=== PATIENT | female | born 1960 | race Caucasian/White ===

== ENCOUNTER 2016-11-15 02:38 | Inpatient (IN) | payer OTHER ==
[~2016-11-15] VITALS: Ht 157.5 cm; Wt 61.7 kg
[~2016-11-15 02:38] MED LIST: AMLODIPINE BESY10 M1 PO; OXYCODONE HCL30 M1 PO; OXYCONTIN60 M1 PO; SOMA350 M1 PO; TRINTELLIX5 MG PO
--- NOTE | 2016-11-15 10:15 | Admission Core Measures ---
Admission Meds I reviewed the following Meds: Current Medications Sig/Reema Start time Last Medication Dose Stop Time Status Admin Acetaminophen 975 MG ONCE 11/15 NR (Tylenol) 11/15 2358 Cefazolin Sodium 2,000 MG ONCE 11/15 NR (Kefzol-Ancef Inj) 11/15 2358 Oxycodone HCl 10 MG ONCE 11/15 NR (Roxicodone) 11/15 2358 Vancomycin HCl 1,000 MG ONCE 11/15 NR Dextrose/Water 250 ML 11/15 2358 (D5W) Acute Coronary Syndrome Inclusion Criteria ACS Diagnosis No Inpatient Core Measures LDL Reminder: If No, please order W/I first 24hr of stay Congestive Heart Failure Inclusion Criteria CHF Diagnosis No Cerebrovascular accident Inclusion Criteria CVA/TIA Diagnosis No Inpatient Core Measures Bedside Swallow Eval Reminder: If BSE failed, place ST order Antithrombotic Reminder: Order Antithrombotic Medication by end of day 2 Antithrombotic Reminder: Document Reason Antithrombotic Not ordered by end of day 2 AFIB/Flutter Reminder: If Present, add to problem list AFIB/Flutter Reminder: Order Anticoag Medication for pts with AFIB/Flutter Atherosclerosis Reminder: If Present, add to problem list LDL Reminder: If No, please order W/I first 24hr of stay PT Order Reminder: If No, please order Venous thromboembolism Inpatient Core Measures VTE Risk Factors: Age > 40, Surgery VTE Prophylaxis Ordered Inpt Mech & Pharm No Mech VTE prophylaxis d/t No contraindications No VTE Pharm Prophylaxis d/t No contraindications Inclusion Criteria - Per Current guidelines, there needs to be overlap - treatment for the first 5 days of Warfarin therapy. - Parenteral Anticoagulation (IV or SC) needs to be - given along with Warfarin therapy. VTE Diagnosis No VTE Type NONE VTE Confirmed by (Test) NONE Problem List As ranked by this Provider includes Assessment & Plan 1. Status post revision of total replacement of right knee HOME MEDS Home Med List Amlodipine Besylate 10 MG TABLET 1 TAB PO QPM HEART (Reported) Carisoprodol (SOMA) (Unknown Strength) TABLET (Unknown Dose) PO TIDPRN PRN SPASMS (Reported) Oxycodone HCl 30 MG TABLET 1 TAB PO Q4P PRN PAIN (Reported) Oxycodone HCl (Oxycontin) 60 MG TAB.ER.12H 1 TAB PO BID PAIN (Reported) Vortioxetine Hydrobromide (Trintellix) 5 MG TABLET 2 TAB PO QPM DEPRESSION ( Reported)
--- NOTE | 2016-11-15 13:44 | Operative Report ---
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 After induction of spinal anesthesia and administration of appropriate preoperative antibiotics she was positioned supine on the OR table and all bony prominences as well padded. A well-padded pneumatic tourniquet was placed on the right upper thigh. The right lower extremity was then prepped and draped in the usual sterile fashion. After exsanguination with Esmarch the tourniquet was inflated to 250 mmHg. Utilizing the previous incision a standard medial parapatellar approach was made to the right knee. This was carried down through skin and subcutaneous tissue to the level of the fascia. Meticulous hemostasis was maintained with Bovie cautery. The extensor mechanism and patellar retinaculum were opened sharply. There is quite a bit of synovitis and this was excised with the use of the Bovie. The medial and lateral gutters were re-created in the medial release was performed. The polyethylene component was then removed without difficulty. Attention was then turned to the femoral component. The bone cement interface was identified. Micromotion was noted between the femoral component and the bone itself. Utilizing a sagittal saw and osteotomes the femoral component was removed with minimal underlying bony damage. All retained loose cement was removed. The femoral canal was then re-created. A posterior synovectomy was then done. Attention was then turned to the tibial component. After exposure was completed it was noted to be grossly loose. It was removed without difficulty. The retained cement however was quite well fixed. Utilizing a high-speed bur and osteotomes the retained cement was carefully removed and the tibial canal was re -created. Both the femoral and tibial canals were then sequentially reamed. The tibial canal was reamed up to a size 12 mm and the femoral canal was reamed up to 13 mm. Beginning with the tibia the proximal tibial cut was refreshed perpendicular to the long axis of the tibial shaft utilizing the reamer as a guide. The tibia was then trialed with a size 3 [place] tibial baseplate and 12 mm x 100 mm fluted stem. Attention was then turned to the femoral component. The box was widened with the use of a sagittal saw and the chamfer cuts were made freehand. The femoral component was then trialed with a size 3 total stabilized femoral component and a 13 mm x 100 mm stem and a pair of posterior augments. The posterior lateral augment was 10 mm in the posterior medial augment was 5 mm. This yielded excellent fit and stability. The knee was then trialed with a size 3 x 16 total stabilized tibial insert. This yielded excellent range of motion and patellar tracking. All trial components removed and the knee was copious irrigated. All components were of the [place] triathlon total knee revision system. All components were cemented into place using [place] Simplex cement with tobramycin. The knee was again irrigated after cementation. The extensor mechanism and patellar retinaculum were repaired using interrupted #1 Vicryl sutures. Hemovac drain was left in the intra-articular space. The skin was approximated with interrupted 2-0 Vicryl and closed with liliana. A sterile dressing was applied the tourniquet was deflated patient was awakened and taken to recovery room in sensory condition.
[2016-11-15] MEDS ORDERED: ASPIRIN EC325 M2 PO (14:34)
[2016-11-15] MEDS ORDERED: COLACE100 M1 PO (14:35)
[2016-11-15] MEDS ORDERED: MIRALAX17 G1 PO (14:39)
--- NOTE | 2016-11-15 14:43 | Patient Discharge Instructions ---
Discharge Instructions General Discharge Information You were seen/treated for: Right knee painful total knee replacement You had these procedures: Revision right total knee replacement Watch for these problems: Increasing pain, redness, warmth, swelling. Drainage of any type from incision. Inability to bear weight on right leg. Fever greater than 101.5. Do not soak the wound: Yes No bath, but you may shower: Yes Special Instructions: Incision: Dry dressing. May shower. No baths. No ointments of any kind. Ice as needed. Bowel regimen: Colace and or MiraLAX Weight-bearing as tolerated Follow-up with Dr. Stephenson in 6 weeks. Call office for fevers greater than 101.5, excessive drainage or inability to bear weight on operative extremity. Visiting nurse will change dressing. Diet Continue normal diet: Yes Recommended Diet: Regular Activity Full Activity/No Limits: No Activity Self Limited: Yes Pounds, do NOT lift more than: 10 Additional ACTIVITY Info: Weight-bear as tolerated Acute Coronary Syndrome Inclusion Criteria At DC or during hospital stay patient has or had the following: ACS DIAGNOSIS No Discharge Core Measures Meds if any: Prescribed or Continued at Discharge Meds if any: NOT Prescribed or Continued at Discharge Congestive Heart Failure Inclusion Criteria At DC or during hospital stay patient has or had the following: CHF DIAGNOSIS No Discharge Core Measures Meds if any: Prescribed or Continued at Discharge Meds if any: NOT Prescribed or Continued at Discharge Cerebrovascular accident Inclusion Criteria At DC or during hospital stay patient has or had the following: CVA/TIA Diagnosis No Discharge Core Measures Meds if any: Prescribed or Continued at Discharge Meds if any: NOT Prescribed or Continued at Discharge Venous thromboembolism Inclusion Criteria VTE Diagnosis No VTE Type NONE VTE Confirmed by (Test) NONE Discharge Core Measures - Per Current guidelines, there needs to be overlap - treatment for the first 5 days of Warfarin therapy. - If discharged on Warfarin prior to 5 days of - overlap therapy, the patient will need to be - assessed for post discharge needs including - *Post discharge parental anticoagulation - *Warfarin and/or parental anticoagulation education - *Follow up date to check INR post discharge At least 5 days overlap therapy as Inpatient No Meds if any: Prescribed or Continued at Discharge Note: Overlap Therapy is Warfarin and Anticoagulant Meds if any: NOT Prescribed or Continued at Discharge
--- NOTE | 2016-11-15 14:46 | Surgical Discharge Summary ---
Visit Information Visit Dates Admission Date: 11/15/16 Discharge Date: 11/17/2016 History of Present Illness Chief Complaint: Right knee painful total knee replacement Medical History Isolation History: Standard Surgical History Pertinent Surgical History: knee replacement Review of Systems: See H&P Hospital Course Course Attending Physician: RPAMOD VINCENT MD Primary Care Physician: ALEX TORRES,McKitrick Hospital Course: Patient was admitted to the hospital on 11/15/2016 for a revision right total knee arthroplasty. She tolerated the procedure well. She was transferred to a general surgical floor. Her diet was advanced and tolerated. She voided spontaneously. Her vital signs were stable and within normal limits. Her pain was well controlled. She was evaluated and treated by physical therapy. She was deemed appropriate for discharge. Allergies: Coded Allergies: Sulfa (Sulfonamide Antibiotics) (Intermediate, RASH 11/15/16) Uncoded Allergies: BETA LACTAM (UNKNOWN 11/15/16) PER PRE-OP SHEET FROM 11/15/16. -CG 11/15/16 8391 Disposition Summary Disposition Principal Diagnosis: Painful right total knee replacement Additional Diagnosis: None Discharge Disposition: home health services Discharge Instructions General Discharge Information Code Status: Full Code Patient's Diet: Regular, advance as tolerated Patient's Activity: Weight-bear as tolerated on right lower extremity Follow-Up Instructions/Appts: Incision: Dry dressing. May shower. No baths. No ointments of any kind. Ice as needed. Bowel regimen: Colace and or MiraLAX Weight-bearing as tolerated Follow-up with Dr. Vincent in 6 weeks. Call office for fevers greater than 101.5, excessive drainage or inability to bear weight on operative extremity. Visiting nurse will change dressing. Medications at Discharge Discharge Medications: Continue taking these medications: Oxycodone HCl (Oxycodone HCl) 30 MG TABLET 1 Tablet ORAL EVERY 4 HOURS NEEDED as needed for PAIN Oxycodone HCl (Oxycontin) 60 MG TAB.ER.12H 1 Tablet ORAL TWICE DAILY Amlodipine Besylate (Amlodipine Besylate) 10 MG TABLET 1 Tablet ORAL Every night Vortioxetine Hydrobromide (Trintellix) 5 MG TABLET 2 Tablet ORAL Every night Carisoprodol (SOMA) (Unknown Strength) TABLET Unknown Dose ORAL THREE TIMES A DAY NEEDED as needed for SPASMS Start taking the following new medications: Aspirin (Ecotrin*) 325 MG TABLET. 1 Tablet ORAL TWICE DAILY Qty = 60 No Refills Docusate Sodium (Colace) 100 MG CAPSULE 1 Capsule ORAL TWICE DAILY Qty = 14 No Refills Polyethylene Glycol 3350 (Miralax) 17 GRAM POWD.PACK 1 Packet ORAL DAILY Qty = 7 No Refills Instructions: dissolve in water, discontinue use if you develop loose stool or diarrhea Copies To: PRAMOD VINCENT MD
[2016-11-15 17:20] VITALS: BP 132/70
[2016-11-15 19:30] VITALS: BP 122/78
[2016-11-15 21:30] VITALS: BP 118/80
--- NOTE | 2016-11-15 22:23 | PN- Orthopedic ---
Subjective Subjective: poc s/p right tka revision no major complaints denies cp, sob, no n+v with diet Objective Vital Signs and I&Os Vital Signs Date Time Temp Pulse Resp B/P Pulse O2 O2 Flow FiO2 Ox Delivery Rate 11/15 2200 68 118/80 11/15 2130 97.9 68 19 118/80 94 Nasal 2.0L Cannula 11/15 1930 98.8 63 18 122/78 91 Room Air 11/15 1720 98.2 78 20 132/70 92 Room Air Physical Exam: cv: rrr lungs: clear abd: soft, +bs ext: distal cms intact drsg dry onq in place hem;ovac: with snaguinous drainage Assessment/Plan Assessment/Plan stable plan oob with pt in am home d/c planning Core Measures/Miscellaneous Venous Thromboembolism VTE Risk Factors: Age > 40, Surgery VTE Contraindications: No Contraindications VTE Prophylaxis Ordered Inpt: Mech & Pharm VTE Diagnosis: No VTE Type: NONE VTE Confirmed by (Test): NONE Beta Natali Is Beta Natali a Home Med? No Antibiotics Is Patient on Antibiotics? Yes If Yes: prophylaxis
[2016-11-16 00:18] VITALS: BP 112/60
[2016-11-16 04:18] VITALS: BP 122/78
[2016-11-16 07:16] VITALS: BP 124/80
[2016-11-16 08:14] LABS: ABSOLUTE BASOPHIL COUNT 0 /CUMM (0.0-0.2); ABSOLUTE EOSINOPHIL COUNT 0 /CUMM (0.0-0.7); ABSOLUTE GRANULOCYTE CT 5.6 /CUMM (1.4-6.5); ABSOLUTE LYMPH COUNT 1.2 /CUMM (1.2-3.4); ABSOLUTE MONOCYTE COUNT 0.5 /CUMM (0.10-0.60); BASOPHIL % 0.2 % (0.0-2.0); EOSINOPHIL % 0.3 % (0-5); GRANULOCYTE % 75.7 % (42.2-75.2); HEMATOCRIT 31.5 % (37-47); MEAN CORPUSCULAR HGB CONC 33.9 G/DL (33.0-37.0); MEAN CORPUSCULAR VOLUME 88.4 FL (81.0-99.0); MEAN PLATELET VOLUME 9.2 FL (7.4-10.4); PLATELET COUNT 129 /CUMM (130-400); RBC DISTRIBUTION WIDTH 13.9 % (11.5-14.5); RED BLOOD CELL CT 3.56 /CUMM (4.20-5.40); WHITE BLOOD CELL COUNT 7.4 /CUMM (4.8-10.8)
--- NOTE | 2016-11-16 08:15 | PN- Orthopedic ---
Subjective Subjective: Doing well, feels pain is well controlled. No nausea and vomitting. No chest pain, shortness of breath and difficulty breathing. Objective Vital Signs and I&Os Vital Signs Date Time Temp Pulse Resp B/P Pulse O2 O2 Flow FiO2 Ox Delivery Rate 11/16 0716 98.2 60 18 124/80 93 Room Air 11/16 0418 98.0 62 18 122/78 91 Room Air 11/16 0018 98.1 62 20 112/60 92 Nasal 1.0L Cannula 11/16 0000 94 Nasal 1.0L Cannula 11/15 2200 68 118/80 02 2130 97.9 68 19 118/80 94 Nasal 2.0L Cannula 11/15 1930 98.8 63 18 122/78 91 Room Air 11/15 1720 98.2 78 20 132/70 92 Room Air Intake & Output 11/16 1600 11/16 0800 11/16 0000 11/15 1600 11/15 0800 11/15 0000 Intake Total 1000 625 Output Total 275 830 Balance 725 -205 Intake, IV 600 225 Intake, Oral 400 400 Output, 25 30 Drainage Output, Urine 250 800 Patient 136 lb Weight Physical Exam: General: Alert and oriented x3, no acute distress Cardiac: RRR, s1s2 Pulmonary: C T A bilaterally Abdomen: Non-tender, non-distended Extremiteis: Moves all extremities, distal sensation intact. Motor 5/5 in plantar and dorsi flexion. Skin warm and well perfused. DP pulses palpable. Bilateral calves soft and non-tender. Surgical site: Right knee. Dressing dry and intact. Hemovac with 55 cc output overnight. Assessment/Plan Assessment/Plan This is a 56 year old female, POD 1, s/p revision Right total knee revision -D/C nicole catheter, due to void 2pm -D/C iv fluids -Hemovac dc'd today -Continue current pain regimen -Continue diet as tolerated -OOB with PT, wbat Core Measures/Miscellaneous Venous Thromboembolism VTE Risk Factors: Age > 40, Surgery VTE Contraindications: No Contraindications VTE Prophylaxis Ordered Inpt: Mech & Pharm VTE Diagnosis: No VTE Type: NONE VTE Confirmed by (Test): NONE Beta Natali Is Beta Natali a Home Med? No Antibiotics Is Patient on Antibiotics? Yes If Yes: prophylaxis
[2016-11-16 15:52] VITALS: BP 110/70
[2016-11-16 23:39] VITALS: BP 125/74
[2016-11-17 08:19] VITALS: BP 113/63
--- NOTE | 2016-11-17 11:04 | PN- Orthopedic ---
Subjective Subjective: pod#2 s/p right tka revison pain control improved today denies cp, sob, no n+v with diet Objective Vital Signs and I&Os Vital Signs Date Time Temp Pulse Resp B/P Pulse O2 O2 Flow FiO2 Ox Delivery Rate 02/ 0819 98.1 68 18 113/63 96 Room Air 02/ 2339 98.6 83 20 125/74 96 Room Air / 2146 70 160/90 11/16 1552 100.0 73 18 110/70 91 / 1220 Room Air Intake & Output 02/ 1600 02/ 0800 02/ 0000 02/ 1600 / 0800 / 0000 Intake Total 480 325 455 5090 625 Output Total 500 250 400 275 830 Balance -20 350 200 725 -205 Intake, IV 600 225 Intake, Oral 480 600 600 400 400 Output, 25 30 Drainage Output, Urine 500 250 400 250 800 Patient 136 lb Weight Physical Exam: cv: rrr lungs: clear abd: soft ext: drsg changed, wound c/d/i no calf tenderness distal cms intact Assessment/Plan Assessment/Plan ortho stable plan cont oob with pt plan for home d/c later today Core Measures/Miscellaneous Venous Thromboembolism VTE Risk Factors: Age > 40, Surgery VTE Contraindications: No Contraindications VTE Prophylaxis Ordered Inpt: Mech & Pharm VTE Diagnosis: No VTE Type: NONE VTE Confirmed by (Test): NONE Beta Natali Is Beta Natali a Home Med? No Antibiotics Is Patient on Antibiotics? Yes If Yes: prophylaxis
[2016-11-17] MEDS ORDERED: KETOROLAC TROME10 M1 PO (12:40)
== END 2016-11-17 13:30 | disposition home health service (06) | DRG 468 ==
LOC: CANRESERV → ENRESERVTM → ENRESERVDT → 2NB 02:38 → SDA 02:38 → 2NB 17:16
PROVIDERS: Nurse Practitioner; ADMIT Orthopaedic Surgery
PROC: 0SRC0J9 Replacement of Right Knee Joint with Synthetic Substitute, Cemented, Open Approach (ICD-10-PCS; principal; 2016-11-15)
PROC: 0SPC0JZ Removal of Synthetic Substitute from Right Knee Joint, Open Approach (ICD-10-PCS; principal; 2016-11-15)
DX: T84.092A Other mechanical complication of internal right knee prosthesis, initial encounter (principal); I10 Essential (primary) hypertension; J44.9 Chronic obstructive pulmonary disease, unspecified; K21.9 Gastro-esophageal reflux disease without esophagitis; F32.9 Major depressive disorder, single episode, unspecified; F17.200 Nicotine dependence, unspecified, uncomplicated; Y83.8 Other surgical procedures as the cause of abnormal reaction of the patient, or of later complication, without mention of misadventure at the time of the procedure
CPT/HCPCS: 2NBP; 82436; 87086; 97110-GO; 97116-GO; 97161-GP; 97530-GO; C1713; EXP; J0131; J0690; J1170; J1885; J2405; J2550; J2795; J3370; J7042; J7060